=== PATIENT | male | born 1950 | race Caucasian/White ===

== ENCOUNTER → 2019-12-23 | Outpatient (CLI) | payer OTHER | LOC: SJCVC 13:59 | PROVIDERS: ATTEND Internal Medicine Cardiovascular Disease | DX: R94.31 Abnormal electrocardiogram [ECG] [EKG] (principal); I25.119 Atherosclerotic heart disease of native coronary artery with unspecified angina pectoris; I10 Essential (primary) hypertension; E78.00 Pure hypercholesterolemia, unspecified; E11.9 Type 2 diabetes mellitus without complications; J45.909 Unspecified asthma, uncomplicated; Z95.1 Presence of aortocoronary bypass graft; Z79.899 Other long term (current) drug therapy ==

== ENCOUNTER → 2019-12-30 | Outpatient (CLI) | payer OTHER ==
[~2019-12-30] MED LIST: ASA81BEC PO; BOSWELLIA SERRAT1 GM PO; FAMOTIDINE 10 M10 MG PO; GLUCOPHAGE1000 MG PO; LEXAPRO20 MG PO; LIPITOR40 MG PO; LISINOPRIL2.5 MG PO; OMEPRAZOLE 20 M20 M1 PO
== END ==
LOC: SJCVCIMAG 08:09
PROVIDERS: ATTEND Internal Medicine Cardiovascular Disease
DX: I11.9 Hypertensive heart disease without heart failure (principal); I25.810 Atherosclerosis of coronary artery bypass graft(s) without angina pectoris; R53.83 Other fatigue; E78.5 Hyperlipidemia, unspecified; E11.9 Type 2 diabetes mellitus without complications; Z79.82 Long term (current) use of aspirin; Z79.899 Other long term (current) drug therapy; Z95.1 Presence of aortocoronary bypass graft

== ENCOUNTER → 2020-01-11 | Outpatient (CLI) | payer OTHER ==
[~2020-01-11] VITALS: Ht 180.3 cm; Wt 104.5 kg
[2020-01-11 07:20] VITALS: BP 133/75
--- NOTE | 2020-01-11 07:54 | EKG ---
[facility] [place] [address] ELECTROCARDIOGRAM REPORT Name: NASIR RAYGOZA Room #: REG [facility]#: [id number] Admission: 01/11/20 Attend Phys: Carlos Alberto Uriarte MD, Discharge: Date of : 54 Report #: [id number] THIS REPORT FOR: cc: Chad Xiong MD [facility] Chad Xiong [facility] Delvin See MD [facility] THIS REPORT FOR: //name// [facility] Test Date: 2020-01-11 Test Time: 07:48:45 Pat Name: NASIR RAYGOZA Department: Room: Gender: [employer]: JULIO : 1950 Requested By: Carlos Alberto Uriarte Order Number: [id number] MD: Delvin See Measurements Intervals [place] Rate: 57 P: 47 [place]: 173 QRS: 30 QRSD: 96 T: 103 QT: 441 QTc: 430 Interpretive Statements Sinus rhythm Nonspecific T abnrm, anterolateral leads No previous ECG available for comparison Electronically Signed On 01-11-2020 7:54:45 CDT by Delvin See [email or web address] <ELECTRONICALLY SIGNED> By: Delvin See MD, [facility] 01/11/20 0754 0748 0748 Delvin See MD, [facility] /EPI
[2020-01-11 07:56] LABS: HEMATOCRIT 39.3 % (42.0-52.0); HEMOGLOBIN 13.5 gm/dL (14.0-18.0); MCH 31.6 pg (26.0-34.0); MCHC 34.5 g/dL (28.0-37.0); MCV 91.6 fL (80.0-100.0); RBC 4.29 mil/uL (4.50-6.00)
[2020-01-11 08:08] LABS: CALCIUM 8.8 mg/dL (8.5-10.1)
--- NOTE | 2020-01-11 12:55 | CATHLAB ---
[facility] [place] [address] INVASIVE PROCEDURE REPORT Name: NASIR RAYGOZA Room #: REG [facility]#: [id number] Admission: 01/11/20 Attend Phys: Carlos Alberto Uriarte MD, Discharge: Date of : 54 Report #: [id number] THIS REPORT FOR: cc: Chad Xiong MD, FAAFP FACE Chad Xiong MD FACE Carlos Alberto Uriarte MD [facility] ~ APPROVED REPORT Study performed: 01/11/2020 08:40:59 Patient Details Patient Status: Out-Patient Room #: The patient is a 69 year-old male Event Personnel Carlos Alberto Uriarte Certified First Assistant, Stacy Morelos RN, Perlita Arredondo RTR Monitor, Serene Palma RTR, STUDENT ASSISTANCE COUNSELOR Monitor, Riccardo Webb RTR Scrub, Emmett Morales RTR X-Ray Tech Procedures Performed Art Access - R femoral artery* Left Heart Cath Coronaries, Bypass Grafts 6540127 LHCCORCABG Aortogram Abdominal Peripheral Angio 117955 Hemostasis w/ Mynx 03802 Initial Mod Sed Same Phys/QHP Gr5y 789279 07793 Mod Sed Same Phys/QHP Ea [id number] Procedure Narrative The Right Groin^ was infiltrated with 1% Lidocaine subcutaneous anesthesia. A PINNACLE 6FR Sheath #[id number] sheath was inserted into the RFA^. Coronary angiography was performed using coronary diagnostic catheters. The right coronary system was accessed and visualized with a JR4 catheter. The left coronary system was accessed and visualized with a JL4 catheter. The left ventricle was accessed and visualized with a PIGTAIL catheter. Left ventriculogram was performed in 30 degree projection. An aortogram of the abdominal aorta was performed. Closure device was deployed with a Fr MYNX CONTROL 6F/7F L#[id number]. The patient tolerated the procedure well and there were no complications associated with the procedure. There was no hematoma. Intraoperative Conscious Sedation Fentanyl 100 mcg Versed 2 mg Fluoro Time: 4.21 minutes Dose: DAP 5417.80 cGycm2 [address] [address] INVASIVE PROCEDURE REPORT Name: RAYGOZANASIR Room #: [facility]#: [id number] Admission: 01/11/20 Attend Phys: Carlos Alberto Uriarte, Discharge: Date of : 54 Report #: [id number] Contrast Type and Amount: Omnipaque 160 ml Hemodynamics The left ventricular pressure is 134/7 mmHg with a mean of mmHg. The left ventricular end diastolic pressure is 23 mmHg. Conclusion 1. Normal left ventricular size with subtle inferior basilar hypokinesis EF 50% range #2 abdominal aortogram revealing mild tortuosity no significant aneurysm or stenosis. 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 #5 BERRIOS to LAD is widely patent with brisk flow around an extensive LAD system with mild disease. 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 No indication for intervention. Recommendations plan: Continue aggressive risk factor modification. No indication for coronary intervention. Follow-up will be arranged. <ELECTRONICALLY SIGNED> By: Carlos Alberto Uriarte MD, FACC 01/11/20 1254 1254 1254 Carlos Alberto Uriarte MD, FACC /INF
== END | disposition home or self-care (01) ==
LOC: CATH 06:25
PROVIDERS: ATTEND Internal Medicine Cardiovascular Disease
DX: R94.39 Abnormal result of other cardiovascular function study (principal); I25.810 Atherosclerosis of coronary artery bypass graft(s) without angina pectoris; I77.1 Stricture of artery; I10 Essential (primary) hypertension; I25.2 Old myocardial infarction; E11.9 Type 2 diabetes mellitus without complications; E78.00 Pure hypercholesterolemia, unspecified; J45.909 Unspecified asthma, uncomplicated; K21.9 Gastro-esophageal reflux disease without esophagitis; E66.09 Other obesity due to excess calories; Z95.1 Presence of aortocoronary bypass graft; Z98.890 Other specified postprocedural states; Z79.899 Other long term (current) drug therapy; Z79.82 Long term (current) use of aspirin

== ENCOUNTER → 2020-12-08 | Outpatient (CLI) | payer OTHER | LOC: SJCVC 11:41 | PROVIDERS: ATTEND Internal Medicine Cardiovascular Disease | DX: R94.31 Abnormal electrocardiogram [ECG] [EKG] (principal); I25.10 Atherosclerotic heart disease of native coronary artery without angina pectoris; I10 Essential (primary) hypertension; E11.9 Type 2 diabetes mellitus without complications; G20 Parkinson's disease; E78.00 Pure hypercholesterolemia, unspecified; J45.909 Unspecified asthma, uncomplicated; G47.33 Obstructive sleep apnea (adult) (pediatric); G25.0 Essential tremor; F32.9 Major depressive disorder, single episode, unspecified; Z79.82 Long term (current) use of aspirin; Z79.84 Long term (current) use of oral hypoglycemic drugs; Z79.899 Other long term (current) drug therapy ==

== ENCOUNTER → 2020-12-22 | Outpatient (CLI) | payer OTHER | LOC: SJCVCIMAG 13:27 | PROVIDERS: ATTEND Internal Medicine Cardiovascular Disease | DX: R94.31 Abnormal electrocardiogram [ECG] [EKG] (principal); R07.89 Other chest pain; I25.10 Atherosclerotic heart disease of native coronary artery without angina pectoris; I10 Essential (primary) hypertension; E78.00 Pure hypercholesterolemia, unspecified; G20 Parkinson's disease; E11.9 Type 2 diabetes mellitus without complications; J45.909 Unspecified asthma, uncomplicated; G47.30 Sleep apnea, unspecified; Z95.1 Presence of aortocoronary bypass graft; Z79.82 Long term (current) use of aspirin; Z79.84 Long term (current) use of oral hypoglycemic drugs; Z79.899 Other long term (current) drug therapy ==

== ENCOUNTER → 2021-04-25 | Outpatient (CLI) | payer OTHER | LOC: SJCVC 12:25 | PROVIDERS: ATTEND Internal Medicine Cardiovascular Disease | DX: R94.31 Abnormal electrocardiogram [ECG] [EKG] (principal); I25.810 Atherosclerosis of coronary artery bypass graft(s) without angina pectoris; I10 Essential (primary) hypertension; E78.00 Pure hypercholesterolemia, unspecified; G20 Parkinson's disease; F32.9 Major depressive disorder, single episode, unspecified; Z95.1 Presence of aortocoronary bypass graft; Z79.82 Long term (current) use of aspirin; Z79.84 Long term (current) use of oral hypoglycemic drugs; Z79.899 Other long term (current) drug therapy ==